=== PATIENT | female | born 1970 | race Two or more races ===

== ENCOUNTER 2021-06-02 02:43 | Emergency (ER) | payer SELFPAY ==
[~2021-06-02] VITALS: Ht 157.5 cm; Wt 72.7 kg
[2021-06-02 02:45] VITALS: BP 121/73
[2021-06-02] MEDS ORDERED: ACET325S20 PR (02:47)
[2021-06-02] MEDS ORDERED: IBUP-1506 PO (02:47)
[2021-06-02] MEDS ORDERED: ACETAMINOPHEN 325 MG TABLET PO ONE (03:00)
[2021-06-02 03:42] LABS: COVID AG,FIA SOURCE NASOPHARYNGEAL
[2021-06-02 04:10] LABS: INFLUENZA TYPE A NEGATIVE FOR TYPE A (NEGATIVE); INFLUENZA TYPE B NEGATIVE FOR TYPE B (NEGATIVE)
== END 2021-06-02 03:34 | disposition home or self-care (01) ==
LOC: EMS 02:48
DX: J02.9 Acute pharyngitis, unspecified (principal); Z20.822 Contact with and (suspected) exposure to COVID-19; Z79.899 Other long term (current) drug therapy
CPT/HCPCS: 87426; 87804; 99283; C9803; U0003